=== PATIENT | male | born 1950 | race Caucasian/White ===

== ENCOUNTER 2018-10-26 09:56 | Emergency (ER) | payer MEDICARE ==
[~2018-10-26] VITALS: Ht 182.9 cm; Wt 110.2 kg
[2018-10-26] MEDS ORDERED: CYCL10 PO (10:25)
[2018-10-26] MEDS ORDERED: Ultram50 MG PO (10:25)
[2018-10-26] MEDS ORDERED: ALLO100 PO (10:28)
[2018-10-26] MEDS ORDERED: TERA5 PO (10:29)
[2018-10-26] MEDS ORDERED: METO100ER PO (10:29)
[2018-10-26] MEDS ORDERED: ENAL20 PO (10:29)
[2018-10-26] MEDS ORDERED: METF500 PO (10:29)
[2018-10-26] MEDS ORDERED: GABA100 PO (10:30)
[2018-10-26] MEDS ORDERED: ALPR.25 PO (10:30)
[2018-10-26] MEDS ORDERED: GLIM2 PO (10:30)
[2018-10-26] MEDS ORDERED: AMLO5 PO (10:31)
[2018-10-26] MEDS ORDERED: TRAM50 (10:31)
[2018-10-26] MEDS ORDERED: LOVA40 PO (10:31)
== END 2018-10-26 10:40 | disposition home or self-care (01) ==
LOC: ER 09:56
DX: M54.2 Cervicalgia (principal); Z79.899 Other long term (current) drug therapy
CPT/HCPCS: 99283

== ENCOUNTER 2018-12-04 07:50 | Day surgery (SDC) | payer MEDICARE ==
[~2018-12-04] VITALS: Ht 180.3 cm; Wt 235.0 kg
[~2018-12-04 07:50] MED LIST: ALLO100 PO; ALPR.25 PO; AMLO5 PO; CYCL10 PO; ENAL20 PO; GABA100 PO; GLIM2 PO; LOVA40 PO; METF500 PO; METO100ER PO; TERA5 PO; TRAM50; Ultram50 MG PO
--- NOTE | 2018-12-04 09:44 | NUR ---
12/04/18 0944 Charly Bates PT SITTING ON STOOL AT FOOT OF OR BED, LEANING ON TWO PILLOWS. BLANKET ON FLOOR UNDER STOOL. DR MERCER INJECTED 3ML ISOVUE 200-M INTO OPSITE AT 0943.
== END 2018-12-04 10:04 | disposition home or self-care (01) ==
LOC: ORSCSDS 07:50
PROVIDERS: Anesthesiology
PROC: 3E0R33Z Introduction of Anti-inflammatory into Spinal Canal, Percutaneous Approach (ICD-10-PCS; principal; 2018-12-04 09:30)
DX: M50.13 Cervical disc disorder with radiculopathy, cervicothoracic region (principal); E11.8 Type 2 diabetes mellitus with unspecified complications; I10 Essential (primary) hypertension; E78.00 Pure hypercholesterolemia, unspecified; Z79.899 Other long term (current) drug therapy
CPT/HCPCS: J1040; J2250; J3010; J7120

== ENCOUNTER 2019-01-17 07:07 | Day surgery (SDC) | payer MEDICARE ==
[~2019-01-17] VITALS: Ht 180.3 cm; Wt 108.9 kg
[2019-01-17] MEDS ORDERED: ANTIFUNGAL30 GM TOP (08:10)
--- NOTE | 2019-01-17 09:02 | NUR ---
01/17/19 0902 Meri Coleman 0845 57, 95%, 157/82 0850 56, 94%, 130/70 PATIENT TOLERATED PROCEDURE WELL. 0 C/O PAIN, DISTRESS. PATIENT TAKEN TO SDU WITHOUT S/S DISTRESS, PAIN. VSS. REPORT GIVEN TO SDU RN
== END 2019-01-17 09:27 | disposition home or self-care (01) ==
LOC: ORSCSDS 07:07
PROVIDERS: Anesthesiology
PROC: 3E0R33Z Introduction of Anti-inflammatory into Spinal Canal, Percutaneous Approach (ICD-10-PCS; principal; 2019-01-17 08:15)
DX: M50.123 Cervical disc disorder at C6-C7 level with radiculopathy (principal); E11.9 Type 2 diabetes mellitus without complications; E78.00 Pure hypercholesterolemia, unspecified; I10 Essential (primary) hypertension; Z79.84 Long term (current) use of oral hypoglycemic drugs; Z79.899 Other long term (current) drug therapy
CPT/HCPCS: 82947; J1040; J2250; J3010

== ENCOUNTER → 2019-03-01 | Outpatient (CLI) | payer MEDICARE ==
[~2019-03-01] MED LIST changes: +ANTIFUNGAL30 GM TOP
== END | disposition home or self-care (01) ==
LOC: LAB SHORT 14:57 → PLD 14:57
DX: C44.619 Basal cell carcinoma of skin of left upper limb, including shoulder (principal)
CPT/HCPCS: 88305

== ENCOUNTER → 2019-03-09 | Outpatient (CLI) | payer MEDICARE | END | disposition home or self-care (01) | LOC: PLD 08:00 → LAB SHORT 08:00 | DX: C44.619 Basal cell carcinoma of skin of left upper limb, including shoulder (principal) | CPT/HCPCS: 88305 ==

== ENCOUNTER 2021-01-14 13:58 | Day surgery (SDC) | payer MEDICARE ==
[~2021-01-14] VITALS: Ht 180.3 cm; Wt 107.3 kg
--- NOTE | 2021-01-14 14:41 | NUR ---
01/14/21 1441 Francisca Lou [facility] STATES THAT DR MERCER SAYS NO CBG NEEDED TODAY.
--- NOTE | 2021-01-14 15:05 | NUR ---
01/14/21 1505 Meri Coleman A PATIENT TAKEN TO RECOVERY/SDU AFTER INJECTION WITHOUT S/S DISTRESS OR COMPLAINTS. A/A/O, APPROPRIATE, NO C/O. REPORT GIVEN TO RN.
== END 2021-01-14 15:17 | disposition home or self-care (01) ==
LOC: ORSCSDS 13:58
PROVIDERS: Anesthesiology
PROC: 3E0R33Z Introduction of Anti-inflammatory into Spinal Canal, Percutaneous Approach (ICD-10-PCS; principal; 2021-01-14 15:15)
DX: M50.123 Cervical disc disorder at C6-C7 level with radiculopathy (principal); E11.9 Type 2 diabetes mellitus without complications; E66.9 Obesity, unspecified; Z68.33 Body mass index [BMI] 33.0-33.9, adult; Z87.891 Personal history of nicotine dependence; Z79.84 Long term (current) use of oral hypoglycemic drugs; Z79.899 Other long term (current) drug therapy
CPT/HCPCS: J1040; J2250; J3010

== ENCOUNTER 2021-06-23 10:54 | Day surgery (SDC) | payer MEDICARE ==
[~2021-06-23] VITALS: Ht 180.3 cm; Wt 102.7 kg
== END 2021-06-23 12:57 | disposition home or self-care (01) ==
LOC: ORSCSDS 10:54
PROVIDERS: Anesthesiology
PROC: 3E0S33Z Introduction of Anti-inflammatory into Epidural Space, Percutaneous Approach (ICD-10-PCS; principal; 2021-06-23 12:00)
DX: M54.12 Radiculopathy, cervical region (principal); E11.40 Type 2 diabetes mellitus with diabetic neuropathy, unspecified; Z79.84 Long term (current) use of oral hypoglycemic drugs; I10 Essential (primary) hypertension; Z79.899 Other long term (current) drug therapy; F41.8 Other specified anxiety disorders
CPT/HCPCS: 82947; J1040; J2250; J3010

== ENCOUNTER 2022-05-12 15:38 | Emergency (ER) | payer MEDICARE ==
[~2022-05-12] VITALS: Ht 182.9 cm; Wt 113.4 kg
[2022-05-12 17:18] LABS: Influenza B, PCR NEGATIVE (NEGATIVE); Resp Syncytial Virus, PCR NEGATIVE (NEGATIVE); SARS-Cov-2 (COVID-19) PCR, MMC NEGATIVE (NEGATIVE)
[2022-05-12 17:21] LABS: Influenza A, PCR POSITIVE (NEGATIVE)
[2022-05-12] MEDS ORDERED: ALBU90OI INH (17:41)
[2022-05-12] MEDS ORDERED: BENZ100A PO (17:41)
== END 2022-05-12 17:48 | disposition home or self-care (01) ==
LOC: ER 15:38
PROVIDERS: Physician Assistant
DX: J10.1 Influenza due to other identified influenza virus with other respiratory manifestations (principal); E11.9 Type 2 diabetes mellitus without complications; I10 Essential (primary) hypertension; Z88.8 Allergy status to other drugs, medicaments and biological substances; Z79.899 Other long term (current) drug therapy; Z79.84 Long term (current) use of oral hypoglycemic drugs; Z87.891 Personal history of nicotine dependence; Z20.822 Contact with and (suspected) exposure to COVID-19
CPT/HCPCS: 0241U; 71045